=== PATIENT | female | born 1990 | race Caucasian/White ===

== ENCOUNTER 2019-02-12 09:46 | Emergency (ER) | payer OTHER ==
[2019-02-12 10:01] VITALS: RESP 18
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
[2019-02-12 12:05] VITALS: BP 106/81; PULSE 75; TEMP 97.8
[2019-02-12 20:07] LABS: Hepatitis B Surface AB- Quant 249.7 mIU/mL; Hepatitis C IgG Antibody Non-Reactive (Non-Reactive)
[2019-02-13 01:48] LABS: HIV 1 AB Non-Reactive (Non-Reactive); HIV AB P24 Non-Reactive (Non-Reactive); HIV P24 AG Non-Reactive (Non-Reactive)
== END 2019-02-12 12:04 | disposition home or self-care (01) ==
LOC: EC 09:46
DX: S20.319A Abrasion of unspecified front wall of thorax, initial encounter (principal); Z77.21 Contact with and (suspected) exposure to potentially hazardous body fluids; Z79.3 Long term (current) use of hormonal contraceptives; Z98.890 Other specified postprocedural states; Y04.2XXA Assault by strike against or bumped into by another person, initial encounter; Y04.8XXA Assault by other bodily force, initial encounter; Y92.69 Other specified industrial and construction area as the place of occurrence of the external cause; Y99.0 Civilian activity done for income or pay
CPT/HCPCS: 36415; 86706; 86803; 87340; 87390; 99284

== ENCOUNTER → 2021-06-07 | Outpatient (CLI) | payer BC ==
[2021-06-07 23:20] LABS: HCT 34.5 % (37.2-46.3); HGB 10.6 g/dL (12.0-15.0); MCH 21.5 pg (27.0-32.0); MCHC 30.7 g/dL (32.0-37.0); Mean Platelet Volume 12.4 fL (9.5-12.2); Platelet Count 251 X 10*3/uL (140-440); RBC 4.93 X 10*6/uL (4.10-5.20); RDW 16.3 % (11.5-14.5); WBC 7.77 X 10*3/uL (4.50-10.00)
[2021-06-08 00:19] LABS: Basophils # (A) 0.03 X 10*3/uL (0.00-0.10); Basophils % (A) 0.4 %; Eosinophils # (A) 0.03 X 10*3/uL (0.04-0.35); Eosinophils % (A) 0.4 %; Lymphocytes # (A) 2.67 X 10*3/uL (0.90-5.00); Lymphocytes % (A) 34.4 %; Monocytes # (A) 0.55 X 10*3/uL (0.20-1.00); Monocytes % (A) 7.1 %; Neutrophils # (A) 4.48 X 10*3/uL (1.80-7.70); Neutrophils % (A) 57.6 %
[2021-06-08 05:25] LABS: % Iron Saturation 25.62 (12.00-45.00); African American GFR (CKD) 97.4 (60.0-200.0); Albumin 4.3 g/dL (3.80-4.90); Albumin/Globulin Ratio 1.65 (1.60-3.17); Anion Gap 12.1 mmol/L (4.00-12.00); BUN/Creat Ratio 15.56 Ratio (12.00-20.00); Calcium 9.6 mg/dL (8.7-10.3); Carbon Dioxide 22.9 mmol/L (21.6-31.8); Globulin 2.6 g/dL (1.6-3.3); Total Bilirubin 0.2 mg/dL (0.3-1.2); Total Protein 6.9 g/dL (6.2-8.2)
[2021-06-08 05:52] LABS: Hepatitis B Surface AB- Quant 88.2 mIU/mL; Hepatitis B Surface Antibody Reactive (Non-Reactive); Hepatitis C IgG Antibody Non-Reactive (Non-Reactive)
[2021-06-08 07:53] LABS: HCG,Quantitative Serum 32854.5 mIU/mL
== END | disposition home or self-care (01) ==
LOC: LABWHC1 14:52
PROVIDERS: ATTEND Family Medicine
DX: O00.01 Abdominal pregnancy with intrauterine pregnancy (principal); D50.9 Iron deficiency anemia, unspecified; R53.82 Chronic fatigue, unspecified
CPT/HCPCS: 36415; 80053; 83540; 83550; 84439; 84443; 84702; 85025; 86706; 86762; 86765; 86780; 86803; 86850; 86900; 86901

== ENCOUNTER → 2021-12-21 | Outpatient (CLI) | payer BC, OTHER ==
[2021-12-22 01:04] LABS: ALT 12 U/L (8-44); AST 15 U/L (13-35); Albumin 3.6 g/dL (3.8-4.9); Albumin/Globulin Ratio 1.45 (1.60-3.17); Alkaline Phosphatase 132 U/L (41-126); Bilirubin, Conjugated <0.20 mg/dL (0.20-0.40); Globulin 2.5 g/dL (1.6-3.3); Total Bilirubin <0.15 mg/dL (0.30-1.20); Total Protein 6.1 g/dL (6.2-8.2)
[2021-12-22 02:08] LABS: HCT 34.4 % (37.2-46.3); HGB 10.4 g/dL (12.0-15.0); MCH 21.8 pg (27.0-32.0); MCHC 30.2 g/dL (32.0-37.0); MCV 72.1 fL (80.0-97.0); Mean Platelet Volume 12.2 fL (9.5-12.2); NRBC Per 100 WBC 0 /100 WBCS (0.0-0.0); Platelet Count 191 X 10*3/uL (140-440); RBC 4.77 X 10*6/uL (4.10-5.20); WBC 9.22 X 10*3/uL (4.50-10.00)
== END | disposition home or self-care (01) ==
LOC: LABWHC1 16:29
PROVIDERS: ATTEND Obstetrics & Gynecology
DX: K83.1 Obstruction of bile duct (principal)
CPT/HCPCS: 36415; 80076; 82239; 85027

== ENCOUNTER → 2022-01-06 | Outpatient (CLI) | payer BC, OTHER ==
[2022-01-06 23:12] LABS: ALT 13 U/L (8-44); AST 17 U/L (13-35); Albumin 3.5 g/dL (3.8-4.9); Alkaline Phosphatase 180 U/L (41-126); Bilirubin, Conjugated <0.20 mg/dL (0.20-0.40); Globulin 3.2 g/dL (1.6-3.3); Total Bilirubin <0.15 mg/dL (0.30-1.20); Total Protein 6.6 g/dL (6.2-8.2)
== END | disposition home or self-care (01) ==
LOC: LABWHC1 16:09
PROVIDERS: ATTEND Obstetrics & Gynecology
DX: Z34.03 Encounter for supervision of normal first pregnancy, third trimester (principal); L50.9 Urticaria, unspecified; Z3A.00 Weeks of gestation of pregnancy not specified
CPT/HCPCS: 36415; 80076; 82239

== ENCOUNTER 2022-01-20 21:25 | Inpatient (IN) | payer BC, OTHER ==
[2022-01-20] MEDS ORDERED: OXYTOCIN 10 UNIT/ML 1 ML VIAL IM PRN (21:44)
[2022-01-20] MEDS ORDERED: LIDOCAINE 1% (PF) 10 MG/ML (30 ML SDV) SQ PRN (21:44)
[2022-01-20] MEDS ORDERED: AMPICILLIN 2,000 MG in SODIUM CHLORIDE 0.9% 100 ML IVPB STA (21:44)
[2022-01-20] MEDS ORDERED: TERBUTALINE 1 MG/ML VIAL SQ PRN (21:44)
[2022-01-20] MEDS ORDERED: METHYLERGONOVINE 0.2 MG/ML 1 ML AMP IM PRN (21:44)
[2022-01-20] MEDS ORDERED: CARBOPROST TROMETHAMINE 250 MCG/ML 1 ML AMP IM PRN (21:44)
[2022-01-20] MEDS ORDERED: OXYTOCIN 30 UNITS/500 ML NS 30 UNIT in SALINE 1 500ML.BAG IV SCH (21:45)
[2022-01-20] MEDS: LACTATED RINGERS 1,000 ML IV SCH ×2 (22:05→23:57)
[2022-01-20] MEDS ORDERED: BUTORPHANOL 1 MG/ML 1 ML VIAL IV PRN (22:07)
[2022-01-20 22:28] LABS: Basophils # (A) 0.1 k/uL (0-0.2); Basophils % (A) 1 %; Eosinophils # (A) 0.1 k/uL (0-0.7); Eosinophils % (A) 1 %; HCT 37.7 % (34.0-46.0); HGB 11.6 gm/dL (11.4-16.0); Hypochromasia Slight; Lymphocytes # (A) 2.7 k/uL (1.0-4.8); Lymphocytes % (A) 25 %; MCH 22.4 pg (25.0-35.0); MCHC 30.7 g/dL (31.0-37.0); MCV 73.1 fL (80.0-100.0); Mean Platelet Volume 7.5; Microcytosis Slight; Monocytes # (A) 0.6 k/uL (0-1.0); Monocytes % (A) 6 %; Neutrophils # (A) 7.2 k/uL (1.3-7.7); Neutrophils % (A) 66 %; Platelet Count 196 k/uL (150-450); RBC 5.16 m/uL (3.80-5.40); WBC 10.9 k/uL (3.8-10.6)
[2022-01-20 22:33] LABS: Appearance,Urine Clear (Clear); Bilirubin,Urine Negative (Negative); Blood,Urine Negative (Negative); Color,Urine Light Yellow; Glucose,Urine (UA) Negative (Negative); Ketones,Urine Negative (Negative); Leukocyte Esterase,Urine Negative (Negative); Nitrite,Urine Negative (Negative); PH, Urine 6.5 (5.0-8.0); Protein,Urine Trace (Negative); Specific Gravity,Urine 1.006 (1.001-1.035); Urobilinogen,Urine <2.0 mg/dL (<2.0)
[2022-01-20 22:36] LABS: INR 0.8 (<1.2); Partial Thromboplastin Time 24.9 sec (22.0-30.0); Prothrombin Time 9.4 sec (9.0-12.0)
[2022-01-20 22:38] LABS: ALT 14 U/L (4-34); AST 29 U/L (14-36); African American GFR (CKD) >90 (>60 ml/min/1.73 sqM); Blood Urea Nitrogen 15 mg/dL (7-17); LDH 535 U/L (313-618); Non-African American GFR(CKD) >90 (>60 ml/min/1.73 sqM); Uric Acid 7.6 mg/dL (3.7-7.4)
[2022-01-20 22:45] LABS: Creatinine,Urine Random 32.6 mg/dL; Protein/Creatinine Ratio,Urine 1.871
[2022-01-20 22:47] LABS: Creatinine,Urine Random 31.9 mg/dL
[2022-01-21] MEDS ORDERED: fentaNYL (PF) 50 MCG/ML 5 ML AMP ONE ×2 (00:31→03:12)
[2022-01-21] MEDS ORDERED: ROPIVACAINE 5MG/ML 20ML VIAL ONE ×2 (00:31→03:12)
[2022-01-21] MEDS ORDERED: SODIUM CHLORIDE 0.9% 100 ML BAG ONE ×3 (00:31→03:12)
--- NOTE | 2022-01-21 00:38 | P.HPOB ---
History of Present Illness H&P Date: 01/21/22 Chief Complaint: Spontaneous rupture of membranes This is a 31-year-old female 1 para 0 with an estimated date of confinement of 02/03/2022, estimated gestational age of 38-0/7 weeks, who presented to labor and delivery with complaints of spontaneous rupture of membr anes with yellow-green fluid at approximately 8:40 PM. Contractions began to feel strong and regular since spontaneous rupture of membranes. care has been with Dr. Zamora. Recent ultrasounds didn't show possible gallbladder sludge/stones. She is also had itching of the hands and feet since approximately 33 weeks. All of her labs were normal for cholestasis of . She denies any headaches or blurry vision. She denies any epigastric pain. Her blood pressures however has been elevated with admission and therefore preeclamptic labs were drawn. She did have an elevated protein to creatinine ratio of 1.8. Her liver enzymes were within normal limits. Her platelet count was within normal limits. labs: GC/Chlamydia/Trichomonas-negative Hepatitis B surface antigen-negative RPR-nonreactive Rubella-immune Blood type-AB+ Antibody screen-negative HIV-nonreactive Hemoglobin-11.5 Toxoplasma-negative Random glucose-74 One hour Glucola-117 Group B streptococcus-positive Obstetrical history: Social history: She is . She works as a teacher. Review of Systems Constitutional: Denies chills, Denies fever Eyes: denies blurred vision, denies pain Ears, nose, mouth and throat: Denies headache, Denies sore throat Cardiovascular: Denies chest pain, Denies shortness of breath Respiratory: Denies cough Gastrointestinal: Reports abdominal pain (Contractions) Genitourinary: Reports pelvic pain, Reports Musculoskeletal: Reports low back pain Integumentary: Denies pruritus, Denies rash Neurological: Denies numbness, Denies weakness Psychiatric: Denies anxiety, Denies depression Past Medical History Past Medical History: No Reported History, Thyroid Disorder Additional Past Medical History / Comment(s): Thalassemia History of Any Multi-Drug Resistant Organisms: None Reported Past Surgical History: Adenoidectomy, Orthopedic Surgery, Tonsillectomy Additional Past Surgical History / Comment(s): hand and wrist surg Past Anesthesia/Blood Transfusion Reactions: No Reported Reaction Past Psychological History: Depression Smoking Status: Never smoker Past Alcohol Use History: Rare Past Drug Use History: None Reported - Past Family History Mother Family Medical History: No Reported History Medications and Allergies Home Medications Medication Instructions Recorded Confirmed Type Levothyroxine Sodium 25 mcg PO DAILY 01/20/22 01/20/22 History Pnv,Calcium 72/Iron/Folic Acid 1 tab PO DAILY 01/20/22 01/20/22 History [ Plus Tablet] Allergies Allergy/AdvReac Type Severity Reaction Status Date / Time No Known Allergies Allergy Verified 01/20/22 21:30 Exam Osteopathic Statement: *. No significant issues noted on an osteopathic structural exam other than those noted in the History and Physical/Consult. Vital Signs Temp Pulse Resp BP Pulse Ox 01/20/22 21:46 97.0 F L 78 16 165/96 98 01/20/22 21:30 97.0 F L 78 16 165/96 98 Intake and Output 01/20/22 01/20/22 01/21/22 14:59 22:59 06:59 Output Total 450 Balance -450 Output: Urine 450 Other: Weight 81.647 kg Gen.: Well-developed well-nourished gravid female in mild distress due to pain HEENT: Within normal limits Heart: Regular rate and rhythm Lungs: Clear to auscultation bilaterally Abdomen: heart tones: 140s with fair variability and some accelerations, no decelerations. Contractions: Every 3-4 minutes Cervix: Upon admission is 2 cm/80%/-2 station with thin meconium noted. Currently she is 3 cm/90%/-2 station with meconium noted. Extremities: Negative Homans, 2+ reflexes bilaterally Results Result Diagrams: 01/20/22 22:10 01/20/22 22:10 Abnormal Lab Results - Last 24 Hours (Table) 01/20/22 01/20/22 01/20/22 Range/Units 22:10 22:10 22:10 WBC (3.8-10.6) k/uL MCV (80.0-100.0) fL MCH (25.0-35.0) pg MCHC (31.0-37.0) g/dL Uric Acid 7.6 H (3.7-7.4) mg/dL Urine Protein Trace H (Negative) U Random Total Protein 61 H (<12) mg/dL 01/20/22 Range/Units 22:10 WBC 10.9 H (3.8-10.6) k/uL MCV 73.1 L (80.0-100.0) fL MCH 22.4 L (25.0-35.0) pg MCHC 30.7 L (31.0-37.0) g/dL Uric Acid (3.7-7.4) mg/dL Urine Protein (Negative) U Random Total Protein (<12) mg/dL Assessment and Plan (1) 38 weeks gestation of Current Visit: Yes Status: Acute Code(s): Z3A.38 - 38 WEEKS GESTATION OF SNOMED Code(s): 07766783 (2) Meconium in amniotic fluid Current Visit: Yes Status: Acute Code(s): P96.83 - MECONIUM STAINING SNOMED Code(s): 150701296 (3) Preeclampsia Current Visit: Yes Status: Acute Code(s): O14.90 - UNSPECIFIED PRE- ECLAMPSIA, UNSPECIFIED TRIMESTER SNOMED Code(s): 769587152 Plan: Admission for active labor. Expectant management. Epidural anesthesia if desired. We'll closely monitor blood pressures. Patient is counseled regarding the diagnosis of preeclampsia and the need for magnesium sulfate seizure prophylaxis. Will try to hold off on magnesium until after delivery as long as her blood pressures stay stable.
[2022-01-21] MEDS ORDERED: AMPICILLIN 1,000 MG in SODIUM CHLORIDE 0.9% 50 ML IVPB SCH (01:45)
[2022-01-21] MEDS: LACTATED RINGERS 1,000 ML IV SCH ×3 (02:01→20:44)
[2022-01-21] MEDS ORDERED: CITRIC ACID-SODIUM CITRATE 15 ML CUP PO ONE (03:00)
[2022-01-21] MEDS ORDERED: MORPHINE SULFATE (PF) 0.3 MG/0.3 ML SYR ONE (03:12)
[2022-01-21] MEDS ORDERED: ONDANSETRON 4 MG/2 ML VIAL ONE (03:12)
[2022-01-21] MEDS ORDERED: OXYTOCIN 10 UNIT/ML 1 ML VIAL ONE (03:12)
[2022-01-21] MEDS ORDERED: diphenhydrAMINE 50 MG/ML 1 ML VIAL ONE (03:12)
[2022-01-21] MEDS ORDERED: ceFAZolin 1,000 MG VIAL ONE (03:12)
[2022-01-21] MEDS ORDERED: OXYTOCIN 30 UNITS/500 ML NS BAG IV ONE (03:12)
--- NOTE | 2022-01-21 04:23 | P.OP ---
Date of Procedure: 01/21/22 Preoperative Diagnosis: 1. Intrauterine at 38 and one sevenths weeks. 2. Repetitive late decelerations with decreased variability. 3. Thick meconium. 4. Preeclampsia 5. Possible gallstones on ultrasound Postoperative Diagnosis: Same Procedure(s) Performed: Primary low transverse section Anesthesia: epidural (With Duramorph) Surgeon: Suzy Campos [employer] Loader #1: Renuka Ayers Estimated Blood Loss (ml): 600 Pathology: other (Placenta) Condition: stable Disposition: floor Indications for Procedure: This is a 31-year-old female 1 para 0 at 38 and one sevenths weeks who presented with spontaneous rupture membranes with meconium fluid. She initially had fair variability but as the course of her labor progressed, the variability did decrease and she began having repetitive late decelerations. Intrauterine pressure catheter and scalp electrode were placed and position changes were carried out. She continued to have decreased variability and repetitive late decelerations. She reached a maximum of 8 cm/90%/-1 station. With the persistent presence of repetitive late decelerations, a patient-centered huddle was held and the need for an expedited delivery was discussed with the patient. It is our clinical recommendation to proceed with the delivery and after all questions were answered, the patient agrees to proceed with the recommended plan. Anesthesia was notified and sleeve ironer was notified. Operative Findings: A viable female infant is noted and asynclitic lie. Thick meconium is noted. scores were 2 at 1 minute, 7 at 5 minutes and 8 at 10 minutes. Infant weight is 2440 g. Normal uterus tubes and ovaries are noted. There is noted to be a paratubal cyst on the left tube. Description of Procedure: The patient is taken to the operating room where she is placed in the dorsal supine position with leftward tilt after epidural anesthesia is bolused. She is prepped and draped in the normal sterile fashion. Skin was tested and found to be adequately anesthetized. A Pfannenstiel skin incision was made with a scalpel. A second knife was used to carry the incision down to the underlying layer of fascia. The fascia was nicked in the midline with a scalpel and then extended laterally bilaterally with Blevins scissors. The anterior lip of the fascia was grasped with 2 Porter clamps and then dissected off the underlying rectus muscle in the midline with Blevins scissors. The inferior aspect of the fascial incision was grasped with 2 Porter clamps and dissected off the underlying rectus muscle and the midline with Blevins scissors. Next the peritoneum layer was tented up with 2 hemostats and then entered sharply with the scalpel. The incision is extended superiorly and inferiorly with Metzenbaum scissors. Next a DeLee retractor is placed. The vesicouterine peritoneum is entered sharply with Metzenbaum scissors and extended laterally bilaterally with Metzenbaum scissors and then the bladder flap is pushed inferiorly. The lower uterine segment is incised in transverse fashion with the scalpel and then bluntly entered with a hemostat. Thick meconium fluid is noted. The incision was then extended laterally bilaterally with 2 fingers. Next the 's head is noted to be low in the pelvis and in an asynclitic lie. 's head is grasped and brought up to the incision after rotating the head slightly. Infant's head is delivered through the incision. Nose and mouth are bulb suctioned. The remainder of the is easily delivered and placed on mother's abdomen. Cord is clamped and cut. is immediately taken to the warmer by level I nursing staff. Uterine fundus is gently massaged and placenta is delivered manually. Uterus is exteriorized and cleared of all clots and debris. Uterine incision is closed with 0 Vicryl suture in a running locked fashion. A second layer of 0 Vicryl suture is used in a running fashion for hemostasis. There is noted to be some bleeding on the right edge of the incision and along the upper edge of the incision due to a large sinus. Multiple interrupted stitches are placed to obtain hemostasis. The vesicouterine peritoneum appears hemostatic and is not reapproximated due to the amount of bleeding that was noted on the upper edge of the incision due to the venous sinus. Surgicel is then placed over the incision. Posterior cul-de-sac is suctioned of all clots and debris. Uterus is returned to the abdomen. Incision is noted to be hemostatic. Peritoneal layer is closed with 0 Vicryl suture in a running fashion. Muscle layer is reapproximated with 0 Vicryl suture in interrupted fashion. Fascia layer is then closed with 0 PDS suture with 2 sutures meeting in the midline and the knots buried in either side and in the midline. The subcutaneous tissue was then closed with 2-0 Vicryl suture. Skin layer was then closed with pauline. All sponge and needle counts are correct. The patient is taken to recovery room in stable condition. Baby is taken to level I nursery for pediatric evaluation.
[2022-01-21] MEDS ORDERED: diphenhydrAMINE 50 MG CAP PO PRN (04:26)
[2022-01-21] MEDS ORDERED: diphenhydrAMINE 50 MG/ML 1 ML VIAL IVP PRN ×2 (04:26)
[2022-01-21] MEDS ORDERED: ONDANSETRON 4 MG/2 ML VIAL IVP PRN (04:26)
[2022-01-21] MEDS ORDERED: diphenhydrAMINE 25 MG CAP PO PRN (04:26)
[2022-01-21] MEDS ORDERED: LABETALOL 5 MG/ML VIAL MDV IVP PRN ×3 (04:26)
[2022-01-21] MEDS ORDERED: MAGNESIUM SULFATE GM 6 GM in SODIUM CHLORIDE 0.9% 100 ML IVPB ONE (04:26)
[2022-01-21] MEDS ORDERED: CALCIUM GLUCONATE 1 GM/10 ML VIAL IV PRN (04:26)
[2022-01-21] MEDS ORDERED: NALOXONE 0.4 MG/ML 1 ML VIAL IV PRN ×2 (04:26→06:17)
[2022-01-21] MEDS ORDERED: OXYTOCIN 30 UNITS/500 ML NS 30 UNIT in SALINE 1 500ML.BAG IV SCH (04:26)
[2022-01-21] MEDS ORDERED: LANOLIN CREAM 5 GM TUBE TOPICAL PRN (04:26)
[2022-01-21] MEDS ORDERED: hydrALAZINE HCL 20 MG/ML 1 ML VIAL IVP PRN (04:26)
[2022-01-21] MEDS ORDERED: METOCLOPRAMIDE 5 MG/ML 2 ML VIAL IVP PRN (04:26)
[2022-01-21] MEDS ORDERED: ZOLPIDEM 5 MG TAB PO PRN (04:26)
[2022-01-21] MEDS: MAGNESIUM SULFATE-WATER PMX 20 GM in WATER FOR INJECTION 1 500ML.BAG IV SCH ×3 (05:27→23:45)
[2022-01-21] MEDS ORDERED: HYDROmorphone PCA 10 MG/50 ML BAG IV PRN (06:30)
[2022-01-21] MEDS ORDERED: LEVOTHYROXINE 25 MCG TAB PO SCH (06:30)
[2022-01-21] MEDS: LEVOTHYROXINE 25 MCG TAB PO SCH (08:41)
[2022-01-21] MEDS ORDERED: PRENATAL VIT-IRON-FOLIC ACID 1 EACH CAP PO SCH (09:00)
[2022-01-21] MEDS: SENNOSIDES-DOCUSATE SODIUM 1 EACH TAB PO SCH ×2 (09:48→20:44)
[2022-01-21] MEDS: ACETAMINOPHEN TAB 500 MG TAB PO SCH ×3 (09:48→20:48)
[2022-01-21] MEDS: IBUPROFEN 600 MG TAB PO SCH ×3 (10:50→23:50)
[2022-01-21] MEDS: KETOROLAC 15 MG/ML 1 ML VIAL IVP SCH ×3 (11:50→23:49)
[2022-01-22] MEDS: ACETAMINOPHEN TAB 500 MG TAB PO SCH ×4 (01:31→23:42)
[2022-01-22] MEDS: IBUPROFEN 600 MG TAB PO SCH ×4 (03:46→20:07)
[2022-01-22] MEDS: LEVOTHYROXINE 25 MCG TAB PO SCH (05:57)
[2022-01-22 07:43] LABS: Basophils % (A) 0 %; Eosinophils # (A) 0.1 k/uL (0-0.7); Eosinophils % (A) 0 %; HCT 33.7 % (34.0-46.0); HGB 10.6 gm/dL (11.4-16.0); Hypochromasia Slight; Lymphocytes # (A) 1.6 k/uL (1.0-4.8); Lymphocytes % (A) 14 %; MCH 23.1 pg (25.0-35.0); MCHC 31.5 g/dL (31.0-37.0); MCV 73.2 fL (80.0-100.0); Microcytosis Slight; Monocytes # (A) 0.4 k/uL (0-1.0); Monocytes % (A) 3 %; Neutrophils # (A) 9.9 k/uL (1.3-7.7); Neutrophils % (A) 82 %; Platelet Count 155 k/uL (150-450); RDW 15.2 % (11.5-15.5); WBC 12.2 k/uL (3.8-10.6)
[2022-01-22] MEDS: SENNOSIDES-DOCUSATE SODIUM 1 EACH TAB PO SCH ×2 (08:31→20:06)
--- NOTE | 2022-01-22 08:41 | P.PNOBGPC ---
Subjective - Subjective Principal diagnosis: Status post primary low transverse postop day #1 Interval history: Patient was on magnesium sulfate throughout the evening and into the morning. She had good urine output in the Rodriguez catheter. Her pain is well-controlled. Magnesium sulfate will be discontinued this morning. Patient reports: Reports pain well controlled [place]: transported Objective - Vital Signs Latest vital signs: Vital Signs Temp Pulse Resp BP Pulse Ox 01/22/22 06:00 98.7 F 73 19 129/81 97 01/22/22 05:00 69 17 117/73 98 01/22/22 04:00 98.7 F 66 16 108/69 98 01/22/22 03:00 63 16 109/71 97 01/22/22 02:00 97.6 F 66 16 111/70 96 01/22/22 01:00 55 L 15 110/65 96 01/22/22 00:00 96.6 F L 58 L 15 108/72 97 01/21/22 23:00 63 16 129/66 97 01/21/22 22:00 75 16 120/76 99 01/21/22 21:00 63 15 113/69 96 01/21/22 20:00 96.8 F L 70 16 113/77 98 01/21/22 19:00 75 16 113/71 97 01/21/22 18:26 71 16 113/76 98 01/21/22 17:26 68 15 126/75 100 01/21/22 16:26 97.7 F 72 16 104/69 99 01/21/22 15:26 68 16 110/68 98 01/21/22 14:26 74 16 123/78 99 01/21/22 13:26 74 16 117/74 98 01/21/22 12:26 77 16 125/75 98 01/21/22 11:26 98.3 F 81 15 130/81 100 01/21/22 10:26 73 15 126/81 95 01/21/22 09:26 79 16 137/87 99 Intake and Output 01/21/22 01/22/22 01/22/22 22:59 06:59 14:59 Intake Total 1770 1352.5 Output Total 1950 1600 Balance -180 -247.5 Intake: IV 1000 900 Lactated Ringers 1,000 ml 600 600 @ 75 mls/hr IV .[id number] [facility] Rx#:[id number] Magnesium Sulfate-Water 400 300 Pmx 20 gm In Water For Injection 1 500ml.bag @ 2 GM/HR 50 mls/hr IV .Q10H [facility] Rx#:[id number] Intake, IV Titration 452.5 Amount Magnesium Sulfate-Water 452.5 Pmx 20 gm In Water For Injection 1 500ml.bag @ 2 GM/HR 50 mls/hr IV .Q10H [facility] Rx#:[id number] Oral 770 Output: Urine 1950 1600 Other: Voiding Method Indwelling Catheter - Exam Lungs: bilateral: normal Chest: Normal S1, Normal S2 Extremities: Present: normal Abdomen: Present: normal appearance, soft. Absent: distention, tenderness Incision: Present: normal, dry, intact Uterus: Present: normal, firm - Labs Labs: Abnormal Lab Results - Last 24 Hours (Table) 01/22/22 Range/Units 07:32 WBC 12.2 H (3.8-10.6) k/uL Hgb 10.6 L (11.4-16.0) gm/dL Hct 33.7 L (34.0-46.0) % MCV 73.2 L (80.0-100.0) fL MCH 23.1 L (25.0-35.0) pg Neutrophils # 9.9 H (1.3-7.7) k/uL Assessment and Plan (1) Preeclampsia Current Visit: Yes Status: Acute Code(s): O14.90 - UNSPECIFIED PRE- ECLAMPSIA, UNSPECIFIED TRIMESTER SNOMED Code(s): 586039918 (2) Status post primary low transverse section Current Visit: Yes Status: Acute Code(s): Z98.891 - HISTORY OF UTERINE SCAR FROM PREVIOUS SURGERY SNOMED Code(s): 898141472 Plan: 1. DC magnesium sulfate 2. Regular diet 3. DC Rodriguez catheter with patient concerning the bedside 4. By mouth pain medication
[2022-01-22] MEDS: KETOROLAC 15 MG/ML 1 ML VIAL IVP SCH ×3 (08:52→19:58)
[2022-01-22] MEDS: SIMETHICONE 80 MG CHEWABLE PO PRN ×3 (11:15→21:49)
--- NOTE | 2022-01-22 21:00 | P.PN ---
Progress Note - Text 01/22/22 4056 81-year-old female status post with spinal Duramorph. Patient seen and evaluated for postop pain control patient had a VAS of 3, no complains of nausea she did have mild pruritus which has resolved
[2022-01-23] MEDS: IBUPROFEN 600 MG TAB PO SCH ×2 (02:06→08:07)
[2022-01-23] MEDS: KETOROLAC 15 MG/ML 1 ML VIAL IVP SCH (02:43)
[2022-01-23 04:55] VITALS: TEMP 98
[2022-01-23] MEDS: LACTATED RINGERS 1,000 ML IV SCH (04:58)
[2022-01-23] MEDS: ACETAMINOPHEN TAB 500 MG TAB PO SCH (05:33)
[2022-01-23] MEDS: LEVOTHYROXINE 25 MCG TAB PO SCH (05:34)
[2022-01-23] MEDS: SIMETHICONE 80 MG CHEWABLE PO PRN (08:07)
[2022-01-23 08:20] VITALS: BP 135/84; PULSE 75; RESP 15
--- NOTE | 2022-01-23 09:03 | P.DS ---
Providers Date of admission: 01/20/22 21:45 Expected date of discharge: 01/23/22 Attending physician: William Zamora Primary care physician: Stated None - Discharge Diagnosis(es) (1) Preeclampsia Current Visit: Yes Status: Acute (2) Status post primary low transverse section Current Visit: Yes Status: Acute Hospital Course: Presented with preeclampsia and labor. She underwent a primary low transverse for category 3 heart tones. Postoperatively she is placed on magnesium sulfate and diuresed well. Her blood pressures have remained stable 24 hours off magnesium sulfate. She has no signs or symptoms of preeclampsia at this time. Patient is informed that preeclampsia can continue for the next 6 weeks and signs and symptoms were reviewed. She denies nausea, vomiting, chest pain, shortness of breath or any calf pain. Patient will be discharged home p ostoperative day #2 in stable condition to follow-up with Dr. Zamora in one week. Plan - Discharge Summary New Discharge Prescriptions: New Ibuprofen [Motrin] 600 mg PO Q6H #40 tab oxyCODONE HCL [OxyIR] 5 mg PO Q4HR PRN #18 tab PRN Reason: Pain Scale 4 - 6 No Action Pnv,Calcium 72/Iron/Folic Acid [ Plus Tablet] 1 tab PO DAILY Levothyroxine Sodium 25 mcg PO DAILY Discharge Medication List Levothyroxine Sodium 25 mcg PO DAILY 01/20/22 [History] Pnv,Calcium 72/Iron/Folic Acid [ Plus Tablet] 1 tab PO DAILY 01/20/22 [History] Ibuprofen [Motrin] 600 mg PO Q6H #40 tab 01/23/22 [Rx] oxyCODONE HCL [OxyIR] 5 mg PO Q4HR PRN #18 tab 01/23/22 [Rx] Follow up Appointment(s)/Referral(s): William Zamora MD [STAFF PHYSICIAN] - 03/02/22 11:15 am (Post Op/Blood pressure check 01-28-2022 at 1:30 p.m.) Discharge Disposition: HOME SELF-CARE
[2022-01-23] MEDS: SENNOSIDES-DOCUSATE SODIUM 1 EACH TAB PO SCH (11:02)
--- NOTE | 2022-01-23 11:23 | P.MSEPDOC ---
Presenting Problems - Arrival Data Date of Arrival on Unit: 01/20/22 Time of Arrival on Unit: 21:25 Mode of Transport: Ambulatory - Complaint OB-Reason for Admission/Chief Complaint: Rule Out SROM, Signs/Symptoms UTI Medical History - Information : 1 Para: 0 Term: 0 : 0 Abortions: Spontaneous or Elective: 0 Number of Living Children: 0 - Gestational Age Gestational Age by STEPHANY (wks/days): 38 Weeks and 0 Days - History Complications: GBS+ Review of Systems - Review of Systems Constitutional: No problems Breast: No problems ENT: No problems Cardiovascular: No problems Respiratory: No problems Gastrointestinal: No problems Genitourinary: No problems Musculoskeletal: No problems Neurological: No problems Skin: No problems Vital Signs - Temperature Temperature: 98.0 F Temperature Source: Oral - Pulse Right Brachial Pulse Rate: 75 Pulse Assessment Method: Automatic Cuff - Respirations Respiratory Rate: 15 Oxygen Delivery Method: Room Air O2 Sat by Pulse Oximetry: 99 - Blood Pressure Right Arm Blood Pressure: 135/84 Blood Pressure Mean: 101 Blood Pressure Source: Automatic Cuff Medical Screen Scoring - Cervical Exam Dilation (cm): 2 Effacement (%): 80 Station: -2 Membranes: Ruptured - Uterine Contractions Intensity: Moderate Resting: Soft to palpation - Assessment - Baby A Heart Rate - NICHD Category: Category II (Indeterminate) NST: Non-reactive Physician Notification - Physician Notified Physician Notified Date: 01/20/22 Physician Notified Time: 21:54 Physician: Suzy Campos Order Received: Yes - Notification Comment Comment: To admit pt to room. To obtain PIH labs. To perform straight cath for UA. To administer ampicillin protocol r/t GBS pos. Pt may have stadol 1 mg q2 for labor pain or epidural when pt is in established labor pattern. To call with results. Maternal Triage Index - Non-Urgent/Priority 4 Non-Urgent Priority 4: Yes Criteria Met for Priority 4: SROM at 2039. Thin Mec fluid noted. Disposition - Disposition OB Disposition: Admit, LDRP Suite I agree with the RN Medical Screening Exam: Yes Case reviewed; plan agreed upon as documented in EMR&OBIX.: Yes Diagnosis: LABOR AND DELIVERY COMPLICATED BY MECONIUM IN AMNIOTIC FLUID
== END 2022-01-23 12:05 | disposition home or self-care (01) | DRG 787 ==
LOC: FBPOP 21:25 → 4FBP 21:45
PROVIDERS: ADMIT Obstetrics & Gynecology; ATTEND Obstetrics & Gynecology
PROC: 3E0R3NZ Introduction of Analgesics, Hypnotics, Sedatives into Spinal Canal, Percutaneous Approach (ICD-10-PCS; 2022-01-21)
PROC: 00HU33Z Insertion of Infusion Device into Spinal Canal, Percutaneous Approach (ICD-10-PCS; 2022-01-21)
PROC: 10D00Z1 Extraction of Products of Conception, Low, Open Approach (ICD-10-PCS; principal; 2022-01-21 03:37)
DX: O14.94 Unspecified pre-eclampsia, complicating childbirth (principal); O98.82 Other maternal infectious and parasitic diseases complicating childbirth; O99.12 Other diseases of the blood and blood-forming organs and certain disorders involving the immune mechanism complicating childbirth; K21.9 Gastro-esophageal reflux disease without esophagitis; O77.0 Labor and delivery complicated by meconium in amniotic fluid; O76 Abnormality in fetal heart rate and rhythm complicating labor and delivery; O99.62 Diseases of the digestive system complicating childbirth; O34.83 Maternal care for other abnormalities of pelvic organs, third trimester; O99.824 Streptococcus B carrier state complicating childbirth; D56.9 Thalassemia, unspecified; Z37.0 Single live birth; Z3A.38 38 weeks gestation of pregnancy; N83.8 Other noninflammatory disorders of ovary, fallopian tube and broad ligament; Z79.890 Hormone replacement therapy; Z79.899 Other long term (current) drug therapy; Z86.59 Personal history of other mental and behavioral disorders
CPT/HCPCS: 81003; 82565; 82570; 83615; 84156; 84450; 84460; 84520; 84550; 85025; 85610; 85730; 86850; 86900; 86901; 88307; 99213

== ENCOUNTER 2024-06-28 08:04 | Inpatient (IN) | payer BC, OTHER ==
[2024-06-28] MEDS ORDERED: miSOPROStoL 200 MCG TAB PO PRN (09:04)
[2024-06-28] MEDS ORDERED: OXYTOCIN 10 UNIT/ML 1 ML VIAL IM PRN (09:04)
[2024-06-28] MEDS ORDERED: METHYLERGONOVINE 0.2 MG/ML 1 ML AMP IM PRN (09:04)
[2024-06-28] MEDS ORDERED: TRANEXAMIC 1,000 MG/100ML-NACL 1,000 MG in EMPTY BAG 1 BAG IV PRN (09:04)
[2024-06-28] MEDS ORDERED: CARBOPROST TROMETHAMINE 250 MCG/ML 1 ML AMP IM PRN (09:04)
[2024-06-28] MEDS ORDERED: OXYTOCIN 30 UNITS/500 ML NS 30 UNIT in SALINE 1 500ML.BAG IV SCH (09:15)
[2024-06-28 09:37] LABS: Basophils # (A) 0.1 k/uL (0-0.2); Basophils % (A) 1 %; Eosinophils # (A) 0.1 k/uL (0-0.7); Eosinophils % (A) 1 %; HCT 32.1 % (34.0-46.0); HGB 10.3 gm/dL (11.4-16.0); Hypochromasia Slight; Lymphocytes # (A) 1.9 k/uL (1.0-4.8); Lymphocytes % (A) 23 %; MCH 22.2 pg (25.0-35.0); MCHC 31.9 g/dL (31.0-37.0); MCV 69.7 fL (80.0-100.0); Mean Platelet Volume 7.8; Microcytosis Moderate; Monocytes # (A) 0.5 k/uL (0-1.0); Monocytes % (A) 6 %; Neutrophils # (A) 5.5 k/uL (1.3-7.7); Neutrophils % (A) 68 %; Platelet Count 170 k/uL (150-450); RBC 4.61 m/uL (3.80-5.40); RDW 14.8 % (11.5-15.5); WBC 8.2 k/uL (3.8-10.6)
[2024-06-28] MEDS: CITRIC ACID-SODIUM CITRATE 15 ML CUP PO ONE (10:09)
[2024-06-28] MEDS ORDERED: OXYTOCIN 30 UNITS/500 ML NS BAG IV ONE (10:25)
[2024-06-28] MEDS ORDERED: NALBUPHINE 10 MG/ML (10 ML MDV) ONE (10:25)
[2024-06-28] MEDS ORDERED: ePHEDrine 50 MG/ML 1 ML VIAL ONE (10:25)
[2024-06-28] MEDS ORDERED: MORPHINE SULFATE (PF) 0.3 MG/0.3 ML SYR ONE (10:25)
[2024-06-28] MEDS ORDERED: ONDANSETRON 4 MG/2 ML VIAL ONE (10:25)
[2024-06-28] MEDS ORDERED: NALOXONE 0.4 MG/ML 1 ML VIAL IV PRN (11:12)
[2024-06-28] MEDS ORDERED: diphenhydrAMINE 50 MG/ML 1 ML VIAL IVP PRN ×2 (11:12)
[2024-06-28] MEDS ORDERED: ONDANSETRON 4 MG/2 ML VIAL IVP PRN (11:12)
[2024-06-28] MEDS ORDERED: HYDROmorphone 2 MG TAB PO PRN (11:12)
[2024-06-28] MEDS ORDERED: ZOLPIDEM 5 MG TAB PO PRN (11:12)
[2024-06-28] MEDS ORDERED: diphenhydrAMINE 50 MG CAP PO PRN (11:12)
[2024-06-28] MEDS ORDERED: diphenhydrAMINE 25 MG CAP PO PRN (11:12)
--- NOTE | 2024-06-28 11:22 | P.OP ---
Date of Procedure: 06/28/24 Preoperative Diagnosis: Twin gestation at 37-0/7 weeks, history of section x 1, desires repeat, IUGR noted with infant A 7%ile Postoperative Diagnosis: Same Procedure(s) Performed: Repeat section Anesthesia: spinal Surgeon: Renuka Ayers Assessment Nurse Practitioner #1: Jessa Brown Estimated Blood Loss (ml): 910 Urine output (ml): 300 Pathology: none sent Condition: stable Disposition: observation Indications for Procedure: History of section x 1, desires repeat. Twin gestation, IUGR noted and infant A Operative Findings: Normal uterus tubes and ovaries were appreciated, and the A, girl delivered at 1044, weight of 5 pounds 0 ounces, B, boy delivered at 1045, weight of 5 pounds 12 ounces Description of Procedure: Patient was taken back to the operating suite where spinal anesthesia was found to be adequate by the anesthesia department. She was prepped and draped in the normal sterile fashion in the dorsal supine position. A Pfannenstiel skin incision was made with a scalpel and carried through to the underlying layer of fascia. The fascia was incised in the midline and the incision was extended laterally. The superior aspect of the fascial incision was then grasped with Porter clamps, elevated and the underlying rectus muscle was dissected off sharply. The inferior aspect of the fascial incision was grasped with Porter clamps, elevated and the underlying rectus muscle was dissected off sharply. The rectus muscles were the midline the peritoneum was identified and entered. The bladder blade was then inserted into the pelvis. The bladder was noted to be far from the hysterotomy site therefore hysterotomy incision was made with a scalpel infant 8 was delivered in a vertex presentation the umbilical cord was doubly clamped and cut and the was handed off to waiting RN. The amniotic sac for B was ruptured clear fluid was obtained and infant was noted to be in a vertex presentation. Infant was delivered in the usual fashion. The mL cord was doubly clamped and Infant was handed off to waiting RN. The placenta was delivered manually intact with a three-vessel cord appreciated x 2. Uterus was noted to be firm. The uterus was cleared of all clots and debris and delivered from the abdomen. The uterine incision was closed with 0 Vicryl in a running locked fashion, a second imbricating suture was performed. Hemostasis was noted. The uterus was returned to the abdomen the gutters were cleared of all clots and debris. A small amount of bleeding was noted in the midportion of the hysterotomy incision therefore a [id number] suture was used to obtain hemostasis. The peritoneum was then loosely reapproximated the rectus muscles were inspected and any points of bleeding were made hemostatic with the Bovie. The fascia was then closed with 0 Vicryl in a running fashion from 1 lateral edge to the other. Hemostasis was noted at the subcutaneous tissue. The skin was then closed with 4-0 Vicryl in a subcuticular fashion. All counts were noted to be correct x 2. Patient and tolerated delivery well and are resting comfortably.
--- NOTE | 2024-06-28 11:23 | P.HPOB ---
History of Present Illness H&P Date: 06/28/24 Chief Complaint: Di Di twin gestation at 37-0/7 weeks 34-year-old 2 para 1-0-0-1 that presents to labor and delivery at 37-0/7 weeks with known twin gestation, di/di. Patient has been receiving routine care with myself which has been essentially uncomplicated. Patient has undergone growth ultrasounds every 4 weeks and discordance increased over the last growth ultrasound. Decision was made as baby a was noted to be 7.8 percentile for delivery at 37-0/7 weeks. Patient has a prior history of a section and elected repeat. Patient notes good movement x 2, denies loss of fluid, occasional contractions are appreciated. On blood work this patient has a blood type of AB+, rubella status immune, hepatitis B surface engine negative, HIV negative, RPR is nonreactive, grew beta strep cultures are negative. Review of Systems Constitutional: Denies chills, Denies fatigue, Denies fever Ears, nose, mouth and throat: Denies headache Cardiovascular: Reports edema Respiratory: Denies dyspnea Gastrointestinal: Denies constipation, Denies diarrhea, Denies nausea, Denies vomiting Genitourinary: Reports Past Medical History Past Medical History: No Reported History, Thyroid Disorder Additional Past Medical History / Comment(s): Thalassemia History of Any Multi-Drug Resistant Organisms: None Reported Past Surgical History: Adenoidectomy, Orthopedic Surgery, Tonsillectomy Additional Past Surgical History / Comment(s): hand and wrist surg Past Anesthesia/Blood Transfusion Reactions: No Reported Reaction Past Psychological History: Depression Smoking Status: Never smoker Past Alcohol Use History: Rare Past Drug Use History: None Reported - Past Family History Mother Family Medical History: No Reported History Medications and Allergies Home Medications Medication Instructions Recorded Confirmed Type Levothyroxine Sodium 25 mcg PO DAILY 01/20/22 06/28/24 History Vit No.180/Iron/Folic 1 tab PO DAILY 01/20/22 06/28/24 History [ Plus Tablet] Ibuprofen [Motrin] 600 mg PO Q6H #40 tab 01/23/22 06/28/24 Rx Aspirin [Children's Aspirin] 1 DAILY 06/28/24 History Allergies Allergy/AdvReac Type Severity Reaction Status Date / Time No Known Allergies Allergy Verified 01/20/22 21:30 Exam Osteopathic Statement: *. No significant issues noted on an osteopathic structural exam other than those noted in the History and Physical/Consult. Vital Signs Temp Pulse Resp Pulse Ox 06/28/24 09:53 96.3 F L 70 16 99 Intake and Output 06/27/24 06/28/24 06/28/24 22:59 06:59 14:59 Other: Weight 87.997 kg Targeted physical exam is performed this date General Is a well-nourished well- developed female in no acute distress, breathing is nonlabored, heart has a regular rhythm, abdomen is gravid and appropriate for twin gestation, cervical exam is deferred, heart tones are noted to be category 1 x 2 with no contractions appreciated. Results Result Diagrams: 06/28/24 09:15 Abnormal Lab Results - Last 24 Hours (Table) 06/28/24 Range/Units 09:15 Hgb 10.3 L (11.4-16.0) gm/dL Hct 32.1 L (34.0-46.0) % MCV 69.7 L (80.0-100.0) fL MCH 22.2 L (25.0-35.0) pg Assessment and Plan (1) Twin gestation in third trimester Current Visit: Yes Status: Acute Code(s): O30.003 - TWIN PREG, UNSP NUM PLCNTA & AMNIO SACS, THIRD TRIMESTER SNOMED Code(s): 58746929 (2) History of section Current Visit: Yes Status: Acute Code(s): Z98.891 - HISTORY OF UTERINE SCAR FROM PREVIOUS SURGERY SNOMED Code(s): 994770415 (3) IUGR (intrauterine growth restriction) Narrative/Plan: And baby A Current Visit: Yes Status: Acute Code(s): MHM2578 - SNOMED Code(s): 15229514 Plan: 34-year-old G2, P1 at 37 0 presents for scheduled repeat section, known twin gestation. All questions are answered. Procedure was reviewed risks are discussed including but not limited to infection, bleeding, damage to bladder, bowel, ureteric or injury. Patient states understanding and wishes to proceed. Anesthesia is in to see patient.
[2024-06-28] MEDS: ACETAMINOPHEN IV (For NPO) 1,000 MG in EMPTY BAG 1 BAG IVPB SCH (14:33)
[2024-06-28] MEDS: ACETAMINOPHEN TAB 500 MG TAB PO SCH (16:28)
[2024-06-28] MEDS: METOCLOPRAMIDE 5 MG/ML 2 ML VIAL IVP PRN (16:33)
[2024-06-28] MEDS: LACTATED RINGERS 1,000 ML IV SCH (18:00)
[2024-06-28] MEDS: IBUPROFEN IV 800 MG in SODIUM CHLORIDE 0.9% 250 ML IV SCH (18:10)
[2024-06-28] MEDS: SENNOSIDES-DOCUSATE SODIUM 1 EACH TAB PO SCH (20:46)
[2024-06-29] MEDS: LEVOTHYROXINE 25 MCG TAB PO SCH (07:03)
[2024-06-29 08:00] LABS: Basophils % (A) 0 %; Eosinophils # (A) 0.1 k/uL (0-0.7); Eosinophils % (A) 1 %; HCT 26.1 % (34.0-46.0); Hypochromasia Moderate; Lymphocytes % (A) 21 %; MCH 22.9 pg (25.0-35.0); MCHC 32.3 g/dL (31.0-37.0); MCV 70.9 fL (80.0-100.0); Mean Platelet Volume 7.6; Microcytosis Moderate; Monocytes # (A) 0.4 k/uL (0-1.0); Monocytes % (A) 4 %; Neutrophils # (A) 7.2 k/uL (1.3-7.7); Neutrophils % (A) 73 %; Platelet Count 158 k/uL (150-450); RBC 3.68 m/uL (3.80-5.40); RDW 14.9 % (11.5-15.5); WBC 9.9 k/uL (3.8-10.6)
[2024-06-29 08:02] LABS: HGB 8.4 gm/dL (11.4-16.0)
[2024-06-29] MEDS: PRENATAL VIT-IRON-FOLIC ACID 1 EACH TABLET PO SCH (08:48)
--- NOTE | 2024-06-29 10:36 | P.PNOBGPC ---
Subjective - Subjective Principal diagnosis: Postop day 1, repeat section, twin gestation Interval history: Patient is doing well postoperatively. She is ambulating and voiding without difficulty. She is tolerating a regular diet without nausea or vomiting. She is breast-feeding the twins. Her lochia is minimal. She is noting some uterine cramping with breast-feeding. Pain is controlled with oral ibuprofen Patient reports: Reports appetite normal, Reports voiding normally, Reports pain well controlled, Reports ambulating normally [place]: doing well, nursing well Objective - Vital Signs Latest vital signs: Vital Signs Temp Pulse Resp BP Pulse Ox 06/29/24 08:30 97.8 F 92 18 102/63 99 06/29/24 04:00 75 16 104/70 97 06/29/24 00:00 65 16 125/70 06/28/24 20:00 97.6 F 56 L 16 105/72 98 06/28/24 16:00 97.7 F 50 L 16 124/72 98 06/28/24 13:22 51 L 16 122/72 100 06/28/24 13:07 54 L 16 122/61 100 06/28/24 12:52 57 L 16 99/61 99 06/28/24 12:37 52 L 16 113/75 99 06/28/24 12:22 53 L 16 120/74 98 06/28/24 12:07 60 16 111/68 98 06/28/24 11:49 58 L 16 110/69 99 06/28/24 11:37 59 L 16 103/61 98 06/28/24 11:22 95.6 F L 57 L 16 112/56 99 Intake and Output 06/28/24 06/29/24 06/29/24 22:59 06:59 14:59 Intake Total 600 Output Total 800 1050 Balance -800 -1050 600 Intake: Oral 600 Output: Urine 800 1050 Uretheral (Rodriguez) 550 Other: # Voids 1 2 - Exam Extremities: Present: normal, edema Abdomen: Present: normal appearance, soft Incision: Present: normal, dry, intact Uterus: Present: normal, firm - Labs Labs: Abnormal Lab Results - Last 24 Hours (Table) 06/29/24 Range/Units 07:23 RBC 3.68 L (3.80-5.40) m/uL Hgb 8.4 L D (11.4-16.0) gm/dL Hct 26.1 L (34.0-46.0) % MCV 70.9 L (80.0-100.0) fL MCH 22.9 L (25.0-35.0) pg Assessment and Plan (1) Twin gestation in third trimester Current Visit: Yes Status: Acute Code(s): O30.003 - TWIN PREG, UNSP NUM PLCNTA & AMNIO SACS, THIRD TRIMESTER SNOMED Code(s): 57853929 (2) History of section Current Visit: Yes Status: Acute Code(s): Z98.891 - HISTORY OF UTERINE SCAR FROM PREVIOUS SURGERY SNOMED Code(s): 898900934 (3) IUGR (intrauterine growth restriction) Current Visit: Yes Status: Acute Code(s): AJR1132 - SNOMED Code(s): 67565586 (4) Status post section Current Visit: Yes Status: Acute Code(s): Z98.891 - HISTORY OF UTERINE SCAR FROM PREVIOUS SURGERY SNOMED Code(s): 145296284 Plan: Patient is doing well postoperatively. Will plan to increase ambulation. If she continues to do well anticipate discharge home tomorrow.
[2024-06-29] MEDS: IBUPROFEN 600 MG TAB PO PRN (12:10)
[2024-06-29 23:58] VITALS: RESP 16
[2024-06-30 10:01] VITALS: BP 132/87; PULSE 79; TEMP 98.3
--- NOTE | 2024-06-30 11:49 | P.DS ---
Providers Date of admission: 06/28/24 08:04 Expected date of discharge: 06/30/24 Attending physician: Renuka Ayers Primary care physician: Stated None - Discharge Diagnosis(es) (1) Twin gestation in third trimester Current Visit: Yes Status: Acute (2) History of section Current Visit: Yes Status: Acute (3) IUGR (intrauterine growth restriction) Current Visit: Yes Status: Acute (4) Status post section Current Visit: Yes Status: Acute Hospital Course: This is a 34-year-old 2 now para 2002 that presents to [facility] for scheduled repeat section. Patient has been receiving routine care with known twin gestation. For full details on this patient please see the dictated history and physical. Patient has a prior history of a section and requested repeat. Patient was taken back to the operating suite where repeat section was performed without difficulty. Patient delivered a viable female at 1044, weight of 5 pounds 0 ounces, viable male infant at 1045, weight of 5 pounds 12 ounces. For full details on the please see the dictated operative report. Patient's postoperative course has been essentially uncomplicated. In this postoperative day #2 she is ambulating and voiding without difficulty. She is tolerating a regular diet without nausea or vomiting. She states her pain is well-controlled. She is breast-feeding/pumping. Patient Condition at Discharge: Good Plan - Discharge Summary Discharge Rx Participant: Yes New Discharge Prescriptions: No Action Ibuprofen [Motrin] 600 mg PO Q6H #40 tab Aspirin [Children's Aspirin] 1 DAILY Vit No.180/Iron/Folic [ Plus Tablet] 1 tab PO DAILY Levothyroxine Sodium 25 mcg PO DAILY Discharge Medication List Levothyroxine Sodium 25 mcg PO DAILY 01/20/22 [History] Vit No.180/Iron/Folic [ Plus Tablet] 1 tab PO DAILY 01/20/22 [History] Ibuprofen [Motrin] 600 mg PO Q6H #40 tab 01/23/22 [Rx] Aspirin [Children's Aspirin] 1 DAILY 06/28/24 [History] Follow up Appointment(s)/Referral(s): Renuka Ayers DO [Doctor of Osteopathic Medicine] - 07/16/24 3:45 pm (Post appointment 08-07-2024 at 9:15) Patient Instructions/Handouts: (DC), (GEN) Activity/Diet/Wound Care/Special Instructions: No intercourse, tampons or baths. No heavy lifting greater than a gallon of milk. No driving for two weeks. Call with any fever, shakes or chills, with any pain not alleviated by over the counter meds, or with any questions or concerns. Ibuprofen 600 mg or 3 tablets every 6 hours as needed for pain. Discharge Disposition: HOME SELF-CARE
== END 2024-06-30 14:00 | disposition home or self-care (01) | DRG 787 ==
LOC: 4FBP 08:04
PROVIDERS: ADMIT Obstetrics & Gynecology Obstetrics; ATTEND Obstetrics & Gynecology Obstetrics
PROC: 10D00Z1 Extraction of Products of Conception, Low, Open Approach (ICD-10-PCS; principal; 2024-06-28)
DX: O34.211 Maternal care for low transverse scar from previous cesarean delivery (principal); O99.12 Other diseases of the blood and blood-forming organs and certain disorders involving the immune mechanism complicating childbirth; O30.043 Twin pregnancy, dichorionic/diamniotic, third trimester; F32.A Depression, unspecified; O36.5930 Maternal care for other known or suspected poor fetal growth, third trimester, not applicable or unspecified; O99.344 Other mental disorders complicating childbirth; Z37.2 Twins, both liveborn; Z3A.37 37 weeks gestation of pregnancy; Z79.890 Hormone replacement therapy; D56.9 Thalassemia, unspecified